=== PATIENT | female | born 1945 | race Caucasian/White ===

== ENCOUNTER 2017-01-30 05:29 | Day surgery (SDC) | payer OTHER ==
[~2017-01-30] VITALS: Ht 175.3 cm; Wt 79.4 kg
--- NOTE | ~2017-01-30 | H ---
[facility] [place] [address] [place] [address] HISTORY AND PHYSICAL Name: ADÁN ERICKSON Room #: 150-12 [facility]..#: [id number] Admission: 01/30/17 Attend Phys: Rudy Suarez MD Discharge: Date of : 43 Report #: [id number] THIS REPORT FOR: //name// CC: FAM unknown Rudy Suarez DATE OF SERVICE: 01/30/2017 HISTORY OF PRESENT ILLNESS: The patient has had sinus headaches since September. It occurs almost every day. She has been treated with multiple courses of antibiotics as well as prednisone and allergy medications. A CT scan of her sinuses done at [facility] shows fluid and mucous membrane thickening in the maxillary and ethmoid sinuses on both sides. PAST MEDICAL HISTORY: Otherwise significant for high blood pressure. MEDICATIONS: Include clonazepam, lisinopril, atorvastatin, amlodipine. ALLERGIES: SHE IS ALLERGIC TO MORPHINE. PHYSICAL EXAMINATION: HEENT: Ears are clear. She had a good nasal airway. NECK: She had no adenopathy or masses in her neck. IMPRESSION: Chronic maxillary and ethmoid sinusitis. PLAN: Endoscopic bilateral maxillary antrostomies and complete ethmoidectomies. <ELECTRONICALLY SIGNED> By: Rudy Suarez MD 01/30/17 [id number] Rudy Suarez MD /nt
--- NOTE | ~2017-01-30 | O ---
[facility] [place] [address] [address] [place] [address] OPERATIVE REPORT Name: ADÁN ERICKSON Room #: 150-12 [facility]#: [id number] Admission: 01/30/17 Attend Phys: Rudy Suarez MD Discharge: Date of : 43 Report #: [id number] THIS REPORT FOR: //name// CC: BARBI Suarez Physician staff DATE OF SERVICE: 01/30/2017 PREOPERATIVE DIAGNOSES: Chronic maxillary and ethmoid sinusitis. POSTOPERATIVE DIAGNOSES: Chronic maxillary and ethmoid sinusitis. OPERATIVE PROCEDURE: Endoscopic bilateral maxillary antrostomies with removal of tissue and bilateral complete ethmoidectomies. ANESTHESIA: General by laryngeal mask. DESCRIPTION OF PROCEDURE: The patient was taken to the operating room and placed in supine position. General anesthesia was induced by laryngeal mask. Once adequate general anesthesia was obtained, a local nasal anesthesia was induced by submucoperiosteal injection of 1% lidocaine with 1:100,000 epinephrine and topical application of cocaine solution. The patient was then draped in a sterile manner. The nasal endoscope was used to visualize the left nasal cavity and the middle turbinate was deviated medially. The uncinate process was removed using the microdebrider and the natural opening of the maxillary sinus was located. This was enlarged in a posterior inferior manner by removing the soft fontanelle. Within the maxillary sinus was thick purulence. This was suctioned and removed. An ethmoidectomy was performed by removing the ethmoidal bulla and then following the ethmoid air cells back to and through the basal lamella and then forward along the lamina papyracea and fovea ethmoidalis to complete the ethmoidectomy anteriorly. FloSeal was placed into the ethmoid cavity and middle meatus for hemostasis. The exact same procedure was performed on the right side. The patient tolerated the procedure well. Blood loss approximately 10 mL. The patient was then awoken and taken to the recovery room in stable condition for postoperative monitoring. By: [id number] Rudy Suarez MD /nt
[~2017-01-30 05:29] MED LIST: ASPIR 8181 MG PO; LISINOPRIL5 MG PO; MAGOX 400400 MG PO; NORVASC10 MG PO; POTASSIUM PO
[2017-01-30 09:30] VITALS: BP 117/74
== END 2017-01-30 12:30 | disposition home or self-care (01) ==
LOC: OR 05:29 → TBA 05:29 → OR 12:30
DX: J32.0 Chronic maxillary sinusitis (principal); J32.2 Chronic ethmoidal sinusitis; I10 Essential (primary) hypertension; Z79.899 Other long term (current) drug therapy; Z88.6 Allergy status to analgesic agent; Z87.891 Personal history of nicotine dependence; Z90.49 Acquired absence of other specified parts of digestive tract; Z90.710 Acquired absence of both cervix and uterus; Z98.890 Other specified postprocedural states; Z98.41 Cataract extraction status, right eye; Z98.42 Cataract extraction status, left eye; Z88.8 Allergy status to other drugs, medicaments and biological substances; Z79.82 Long term (current) use of aspirin
CPT/HCPCS: 50010; 50101; 50386; 50398; 51751; 56635; 62110; 62900; 64037; 70005